=== PATIENT | male | born 1950 | race Caucasian/White ===

== ENCOUNTER 2018-06-13 17:47 | Emergency (ER) | payer OTHER ==
[2018-06-13 17:51] VITALS: BP 150/71; TEMP 98.6; BMI 26.7
[2018-06-13] MEDS ORDERED: LIDOCAINE HCL 1% SDV SUBCUT STA (17:59)
--- NOTE | 2018-06-13 18:17 | ED.PDOC ---
General ED Provider: Dr. DARRYN YOST Chief Complaint: Laceration Stated Complaint: laceration left elbow Time Seen by Physician: 18:00 (see photos before and after ) Mode of Arrival: Walk-In Information Source: Patient Exam Limitations: No limitations Nursing and Triage Documentation Reviewed and Agree: Yes Does patient meet sepsis criteria?: No System Inflammatory Response Syndrome: Not Applicable Sepsis Protocol: For patient's 13 years and over: Temp is 96.8 and below OR 101 and greater Pulse >90 BPM Resp >20/minute Acutely Altered Mental Status Are patient's symptoms suggestive of a new infection, such as: -Pneumonia -Skin, Soft Tissue -Endocarditis -UTI -Bone, Joint Infection -Implantable Device -Acute Abdominal Infection -Wound Infection -Meningitis -Blood Stream Catheter Infection -Unknown Skin Complaint Exam - Lac/Torso/Upper Ext. Complaint/Exam Location of Injury: Left (elbow) Mechanism of Injury: Laceration Onset/Duration: 1 hr ago Symptoms Are: Still present Initial Severity: Mild Current Severity: Mild Aggravating: None Alleviating: None Associated Signs and Symptoms: Denies: Fever, Chills, Erythema, Numbness, Tingling Related History: Reports: Anticoagulant use Differential Diagnoses: Laceration Review of Systems - Review Of Systems Constitutional: Reports: No symptoms Eyes: Reports: No symptoms Ears, Nose, Mouth, Throat: Reports: No symptoms Respiratory: Reports: No symptoms Cardiac: Reports: No symptoms GI: Reports: No symptoms : Reports: No symptoms Musculoskeletal: Reports: No symptoms Skin: Reports: Other (laceration) Neurological: Reports: No symptoms Endocrine: Reports: No symptoms Hematologic/Lymphatic: Reports: No symptoms All Other Systems: Reviewed and Negative Past Medical History - Past Medical History Previously Healthy: Yes Endocrine: Reports: None Cardiovascular: Reports: None Respiratory: Reports: None Hematological: Reports: None Gastrointestinal: Reports: None Genitourinary: Reports: None Neuro/Psych: Reports: None Musculoskeletal: Reports: None Cancer: Reports: None - Surgical History General Surgical History: Reports: None - Family History Family History: Reports: None - Social History Smoking Status: Current every day smoker Hx Substance Use: No Alcohol Screening: None - Immunizations Tetanus Shot up to Date: No (UNKNOWN) Physical Exam - Physical Exam Appearance: Well-appearing, No pain distress, Well-nourished Eyes: KT, EOMI, Conjunctiva clear ENT: Ears normal, Nose normal, Oropharynx normal Respiratory: Airway patent, Breath sounds clear, Breath sounds equal, Respirations nonlabored Cardiovascular: RRR, Pulses normal, No rub, No murmur GI/: Soft, Nontender, No masses, Bowel sounds normal, No Organomegaly Musculoskeletal: Normal strength, ROM intact, No edema, No calf tenderness Skin: Warm, Dry, Normal color Neurological: Sensation intact, Motor intact, Reflexes intact, Cranial nerves intact, Alert, Oriented Psychiatric: Affect appropriate, Mood appropriate Procedures - Laceration/Wound Repair No standard instances Wound Description: Linear (left elbow) Wound Length (cm): 2cm Wound Width: 3mm Wound Depth: 1mm Wound Explored: Clean Wound Prep: Hibiclens Anesthesia: Lidocaine (plain 1ml 15) Wound Debrided: Minimal Undermining: Minimal Wound Margins: [place] border aligned Wound Repaired With: Sutures Suture Size and Type: prolene 3 Number of Sutures: 5 (see photos before and after ) Number of [place]: 0 Number Deep Layer Sutures: 0 Sterile Dressing Applied?: Yes Splint Applied?: No Sling Applied?: No Critical Care Note - Critical Care Note Total Time (mins): 0 Course - Course Orders, Labs, Meds: Orders Category Date Time Status Lidocaine HCl/Pf [Lidocaine HCl 1% Sdv] MEDS 06/13/18 17:59 Stat 5 ml SUBCUT ONCE STA Medications Discontinued Medications Generic Name Dose Route Start Last Admin Trade Name Mallory PRN Reason Stop Dose Admin Lidocaine HCl 5 ml 06/13/18 17:59 06/13/18 18:08 Lidocaine Hcl 1% Sdv SUBCUT 06/13/18 18:00 5 ml ONCE STA Administration Vital Signs: Temp Pulse Resp BP Pulse Ox 06/13/18 17:47 98.6 F 57 L 20 150/71 H 95 Departure - Departure Time of Disposition: 18:18 Disposition: HOME SELF-CARE Discharge Problem: Laceration - injury Instructions: Laceration (ED), Care For Your Stitches (ED) Condition: Good Pt referred to PMD for follow-up: Yes IPMP verified?: No Additional Instructions: Please call your Family Physician as soon as possible to schedule a follow-up appointment. Allergies/Adverse Reactions: Allergies No Known Allergies Allergy (Unverified 06/13/18 17:51) Home Medications: Ambulatory Orders Calcium Carbonate [Calcium] 500 mg PO DAILY 06/13/18 Niacin [Slo-Niacin] 750 mg PO BEDTIME 06/13/18 [place]-3/Dha/Epa/Fish Oil [Fish Oil 1,600 mg/5 ml Liquid] 1,600 mg PO BID Ranitidine HCl 150 mg PO BID 06/13/18 Zinc 50 mg PO DAILY 06/13/18
[2018-06-13] MEDS ORDERED: TENIVAC IM ONE (18:19)
== END 2018-06-13 18:39 | disposition home or self-care (01) ==
LOC: ED 17:47
DX: S51.012A Laceration without foreign body of left elbow, initial encounter (principal); W22.8XXA Striking against or struck by other objects, initial encounter; F17.210 Nicotine dependence, cigarettes, uncomplicated
CPT/HCPCS: 90471; 90714; 99283